=== PATIENT | female | born 1960 | race Caucasian/White ===

== ENCOUNTER 2019-06-09 06:34 | Inpatient (IN) | payer OTHER ==
[~2019-06-09 06:34] MED LIST: CLINDAMYCIN 900 MG/D5W (PMX) 50 ML IVPB; LACTATED RINGER'S 1,000 ML IV
[2019-06-09] MEDS ORDERED: POLYMYXIN/BACITRACIN 1L IRRIG (07:09)
[2019-06-09] MEDS ORDERED: SUCCINYLCHOLINE CHLORIDE 100 MG/5 ML SYG IV (07:31)
[2019-06-09] MEDS ORDERED: LIDOCAINE 2% (SDV) 5 ML INJ (07:31)
[2019-06-09] MEDS ORDERED: MEPERIDINE 100 MG INJ (07:31)
[2019-06-09] MEDS ORDERED: GLYCOPYRROLATE 0.4 MG INJ ×2 (07:31→09:48)
[2019-06-09] MEDS ORDERED: NEOSTIGMINE 3 MG/3 ML SYRINGE ×2 (07:31→09:48)
[2019-06-09] MEDS ORDERED: PROPOFOL 20 ML (07:31)
[2019-06-09] MEDS ORDERED: ROCURONIUM 50 MG INJ ×2 (07:31→09:47)
[2019-06-09] MEDS ORDERED: CLINDAMYCIN 900 MG/D5W (PMX) 50 ML IVPB (07:36)
[2019-06-09] MEDS: GELATIN SIZE 100 SPONGE (08:26)
[2019-06-09] MEDS: BUPIVACAINE 0.5%/EPI (SDV) 30 ML INJ (08:26)
[2019-06-09] MEDS: THROMBIN 5000 UNIT (RECOTHROM) VIAL (09:04)
[2019-06-09] MEDS: HEMOSTATIC MATRIX/ THROMBIN 1 EA SYG ZFS ×2 (09:04→10:24)
[2019-06-09] MEDS: POLYMYXIN/BACITRACIN 1L IRRIG (09:05)
[2019-06-09] MEDS ORDERED: FENTAnyl 50 MCG/ML VIAL ×2 (12:20→13:59)
[2019-06-09] MEDS ORDERED: METOCLOPRAMIDE 10 MG INJ (13:36)
[2019-06-09] MEDS ORDERED: ONDANSETRON 4 MG INJ (13:36)
[2019-06-09] MEDS ORDERED: FENTAnyl 50 MCG/ML VIAL IV ×2 (14:00)
[2019-06-09] MEDS ORDERED: ONDANSETRON 4 MG INJ IV ×2 (14:00→14:30)
[2019-06-09] MEDS ORDERED: HYDROmorphONE 1 MG/5 ML IV SYRINGE IV ×2 (14:00)
[2019-06-09] MEDS ORDERED: EPHEDrine 25 MG/5 ML SYG IV (14:00)
[2019-06-09] MEDS ORDERED: MIDAZOLAM 1 MG/ML 2 ML INJ IV (14:00)
[2019-06-09] MEDS ORDERED: DIPHENHYDRAMINE 50 MG INJ IV (14:00)
[2019-06-09] MEDS ORDERED: LABETALOL HCL 20MG INJ IV (14:00)
[2019-06-09] MEDS ORDERED: METOCLOPRAMIDE 10 MG INJ IV (14:00)
[2019-06-09] MEDS ORDERED: hydrALAzine 20 MG INJ IV (14:00)
[2019-06-09] MEDS ORDERED: ACETAMINOPHEN 325 MG TAB PO (14:30)
[2019-06-09] MEDS ORDERED: NACL 0.9% 3 ML SYG IV (14:30)
[2019-06-09] MEDS ORDERED: VANCOMYCIN 1 GM (PMX) 250 ML IVPB (14:30)
[2019-06-09] MEDS ORDERED: AL HYDROX/MG HYDROX/SIMETH 30 ML CUP PO (14:30)
[2019-06-09] MEDS ORDERED: HYDROCODONE/APAP (5/325) TAB PO ×2 (14:30)
[2019-06-09] MEDS ORDERED: PROCHLORPERAZINE 10 MG TAB PO (14:30)
[2019-06-09] MEDS ORDERED: NALOXONE (0.4 MG/ML) INJ IV (14:30)
[2019-06-09] MEDS: HYDROmorphONE 1 MG/5 ML IV SYRINGE IV ×3 (15:15→15:41)
[2019-06-09] MEDS: HYDROmorphONE 0.2 MG/ML PCA IV ×2 (15:44→22:20)
[2019-06-09] MEDS: MEPERIDINE 25 MG INJ IV (16:13)
[2019-06-09] MEDS: FENTAnyl 50 MCG/ML VIAL IV ×2 (16:14→16:29)
[2019-06-09] MEDS: SOD CHLORIDE 0.45% 1,000 ML IV (17:05)
[2019-06-09] MEDS: VANCOMYCIN 1 GM (PMX) 250 ML IVPB (18:28)
[2019-06-09] MEDS ORDERED: HYDROmorphONE 0.2 MG/ML PCA IV (22:30)
[2019-06-10] MEDS: SOD CHLORIDE 0.45% 1,000 ML IV ×4 (00:23→20:23)
[2019-06-10] MEDS: METHOCARBAMOL 750 MG TAB PO ×2 (03:07→19:04)
[2019-06-10] MEDS: HYDROmorphONE 0.2 MG/ML PCA IV ×3 (03:09→20:46)
[2019-06-10 05:11] LABS: HEMATOCRIT 33.2 % (37.0-47.0); HEMOGLOBIN 10.4 g/dl (12.0-16.0)
[2019-06-10] MEDS: ACETAMINOPHEN 1000MG/100ML IV 100 ML IVPB ×3 (05:13→20:19)
[2019-06-10 05:35] LABS: ANION GAP -1 (5-13); BLOOD UREA NITROGEN 8 mg/dl (7-20); CARBON DIOXIDE 33 mmol/L (21-31); CHLORIDE 108 mmol/L (97-110); CREATININE 0.79 mg/dl (0.44-1.00); Estimated GFR > 60 mL/min (>60); GLUCOSE 111 mg/dl (70-220); POTASSIUM 3.2 mmol/L (3.5-5.1); SODIUM 140 mmol/L (135-144)
[2019-06-10] MEDS: VANCOMYCIN 1 GM (PMX) 250 ML IVPB (06:06)
[2019-06-10] MEDS: DOCUSATE SODIUM 100 MG CAP PO ×2 (09:37→20:18)
[2019-06-10] MEDS: POTASSIUM CHLORIDE (SR) 10 MEQ TAB PO ×2 (09:37→20:18)
[2019-06-10] MEDS: predniSONE 5 MG TAB PO (10:59)
[2019-06-11] MEDS: HYDROmorphONE 0.2 MG/ML PCA IV ×4 (03:39→23:05)
[2019-06-11 04:59] LABS: ADD MAN DIFF? NO
[2019-06-11 05:04] LABS: BASOPHILS % 0.2 % (0.0-2.0); EOSINOPHILS # 0.1 10^3/ul (0.0-0.5); EOSINOPHILS % 1.2 % (0.0-7.0); HEMATOCRIT 34.4 % (37.0-47.0); HEMOGLOBIN 10.8 g/dl (12.0-16.0); LYMPHOCYTES # 0.9 10^3/ul (0.8-2.9); LYMPHOCYTES % 11.2 % (15.0-51.0); MEAN CORPUSCULAR HEMOGLOBIN 30.2 pg (29.0-33.0); MEAN CORPUSCULAR HGB CONC 31.4 g/dl (32.0-37.0); MEAN CORPUSCULAR VOLUME 96.1 fl (82.0-101.0); MEAN PLATELET VOLUME 8.9 fl (7.4-10.4); MONOCYTE # 0.8 10^3/ul (0.3-0.9); MONOCYTES % 9.3 % (0.0-11.0); NEUTROPHIL # 6.5 10^3/ul (1.6-7.5); NEUTROPHILS % 77.4 % (39.0-77.0); PLATELET COUNT 224 10^3/UL (140-415); RED BLOOD COUNT 3.58 10^6/ul (4.20-5.40); RED CELL DISTRIBUTION WIDTH 12.9 % (11.5-14.5)
[2019-06-11 05:04] LABS: WHITE BLOOD COUNT 8.4 10^3/ul (4.8-10.8)
[2019-06-11 05:31] LABS: ANION GAP 2 (5-13); BLOOD UREA NITROGEN 8 mg/dl (7-20); CALCIUM 8.5 mg/dl (8.4-10.2); CARBON DIOXIDE 30 mmol/L (21-31); CHLORIDE 111 mmol/L (97-110); CREATININE 0.64 mg/dl (0.44-1.00); Estimated GFR > 60 mL/min (>60); GLUCOSE 126 mg/dl (70-220); MAGNESIUM 2.2 mg/dl (1.7-2.5); PHOSPHORUS 3.4 mg/dl (2.5-4.9); POTASSIUM 3.9 mmol/L (3.5-5.1); SODIUM 143 mmol/L (135-144)
[2019-06-11] MEDS: SOD CHLORIDE 0.45% 1,000 ML IV (06:08)
[2019-06-11] MEDS: predniSONE 5 MG TAB PO (08:54)
[2019-06-11] MEDS: DOCUSATE SODIUM 100 MG CAP PO ×2 (08:54→20:45)
[2019-06-11] MEDS: METHOCARBAMOL 750 MG TAB PO ×2 (10:37→22:07)
[2019-06-12 05:13] LABS: ADD MAN DIFF? NO; BASOPHIL # 0.1 10^3/ul (0.0-0.1); BASOPHILS % 0.7 % (0.0-2.0); EOSINOPHILS # 0.1 10^3/ul (0.0-0.5); EOSINOPHILS % 2.1 % (0.0-7.0); HEMATOCRIT 36.1 % (37.0-47.0); HEMOGLOBIN 11.6 g/dl (12.0-16.0); LYMPHOCYTES # 1.3 10^3/ul (0.8-2.9); LYMPHOCYTES % 19.4 % (15.0-51.0); MEAN CORPUSCULAR HEMOGLOBIN 30.4 pg (29.0-33.0); MEAN CORPUSCULAR HGB CONC 32.1 g/dl (32.0-37.0); MEAN CORPUSCULAR VOLUME 94.8 fl (82.0-101.0); MEAN PLATELET VOLUME 8.7 fl (7.4-10.4); MONOCYTE # 0.7 10^3/ul (0.3-0.9); MONOCYTES % 10.3 % (0.0-11.0); NEUTROPHIL # 4.5 10^3/ul (1.6-7.5); NEUTROPHILS % 67.1 % (39.0-77.0); PLATELET COUNT 243 10^3/UL (140-415); RED BLOOD COUNT 3.81 10^6/ul (4.20-5.40); RED CELL DISTRIBUTION WIDTH 12.8 % (11.5-14.5)
[2019-06-12 05:13] LABS: WHITE BLOOD COUNT 6.8 10^3/ul (4.8-10.8)
[2019-06-12 05:35] LABS: ANION GAP 1 (5-13); BLOOD UREA NITROGEN 5 mg/dl (7-20); CALCIUM 8.8 mg/dl (8.4-10.2); CARBON DIOXIDE 33 mmol/L (21-31); CHLORIDE 106 mmol/L (97-110); CREATININE 0.55 mg/dl (0.44-1.00); Estimated GFR > 60 mL/min (>60); GLUCOSE 98 mg/dl (70-220); MAGNESIUM 2.1 mg/dl (1.7-2.5); PHOSPHORUS 4.2 mg/dl (2.5-4.9); POTASSIUM 3.7 mmol/L (3.5-5.1); SODIUM 140 mmol/L (135-144)
[2019-06-12] MEDS: HYDROmorphONE 0.2 MG/ML PCA IV (06:41)
[2019-06-12] MEDS: DOCUSATE SODIUM 100 MG CAP PO (09:11)
[2019-06-12] MEDS: POLYETHYLENE GLYCOL 17 GM PACKET PO (09:11)
[2019-06-12] MEDS: predniSONE 5 MG TAB PO (09:54)
== END 2019-06-12 13:15 | disposition home or self-care (01) | DRG 455 ==
LOC: REC 06:34 → MS1 16:56
PROC: 0SG00J1 Fusion of Lumbar Vertebral Joint with Synthetic Substitute, Posterior Approach, Posterior Column, Open Approach (ICD-10-PCS; principal; 2019-06-09 07:30)
PROC: 0SG00AJ Fusion of Lumbar Vertebral Joint with Interbody Fusion Device, Posterior Approach, Anterior Column, Open Approach (ICD-10-PCS; 2019-06-09 07:30)
DX: M43.16 Spondylolisthesis, lumbar region (principal); M51.16 Intervertebral disc disorders with radiculopathy, lumbar region; M48.061 Spinal stenosis, lumbar region without neurogenic claudication; M06.9 Rheumatoid arthritis, unspecified; E87.6 Hypokalemia; K59.00 Constipation, unspecified; Z88.0 Allergy status to penicillin
CPT/HCPCS: 72110; 80048; 83735; 84100; 85014; 85018; 85025; 86850; 86900; 86901; 87086; 88305; 97116; 97162; 97530